=== PATIENT | male | born 1995 | race Two or more races ===

== ENCOUNTER 2021-03-09 16:51 | Emergency (ER) | payer SELFPAY ==
[~2021-03-09] VITALS: Ht 190.5 cm; Wt 129.5 kg
[2021-03-09 19:15] VITALS: BP 134/92
== END 2021-03-09 22:13 | disposition left against medical advice (07) ==
LOC: ER 16:51
DX: R10.9 Unspecified abdominal pain (principal); Z53.21 Procedure and treatment not carried out due to patient leaving prior to being seen by health care provider